=== PATIENT | male | born 1950 | race Caucasian/White ===

== ENCOUNTER 2024-02-01 13:59 | Outpatient (OUT) | payer MEDICARE, OTHER, SELFPAY ==
--- NOTE | 2024-02-01 14:12 | CT_ITS ---
[address] [address] Patient Name: JOSÉ ANTONIO FIELD MRN: [id number] date: 1950 Sex: M Assigned Patient Location: CT Current Patient Location: Accession/Order Number: [id number] Exam Date: 02/01/2024 14:31 Report Date: 02/02/2024 14:55 At the request of: SHILPA DANIELS Procedure: CT abdomen pelvis wo con EXAMINATION: CT abdomen pelvis wo con HISTORY: Kidney Stone, Microscopic Hematuria COMPARISON: No relevant comparison available. TECHNIQUE: Axial, Coronal, and Sagittal images were created without IV contrast. Dose reduction techniques were achieved by using automated exposure control and/or adjustment of mA and/or kV according to patient size and/or use of iterative reconstruction technique. FINDINGS: LUNG BASES: No visible pulmonary or pleural disease. LIVER: No enlargement, atrophy, abnormal density, or significant focal lesion. BILIARY: A lithiasis without CT evidence of acute cholecystitis PANCREAS: No lesion, fluid collection, ductal dilatation, or atrophy. SPLEEN: No enlargement or focal lesion. ADRENALS: No mass or enlargement. KIDNEYS: Normal right. Nonobstructing left nephrolithiasis BOWEL/MESENTERY: Moderate colonic diverticulosis without evidence of acute hepatitis. Nonobstructive bowel gas pattern. Moderate amount of stool. 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 Extensive calcific atherosclerosis RETROPERITONEUM: No mass or adenopathy. LYMPH NODES: No adenopathy. URINARY BLADDER: No visible focal wall thickening, lesion, or calculus. PELVIC ORGANS: Normal prostate size with central calcifications ABDOMINAL WALL: No mass or hernia. BONES: Chronic left L5 pars fracture with 2 mm anterolisthesis of L5 on S1. Moderate degenerative changes most significant at L3-4 OTHER: Negative. CT/CT abdomen pelvis wo con IMPRESSION: No obstructive uropathy Scattered prostate calcifications, nonspecific 3.5 cm aneurysm distal abdominal aorta Electronically authenticated by: CESAR BULL Date: 02/02/2024 14:55
== END 2024-02-01 14:00 | disposition home or self-care (01) ==
LOC: CT 14:04
PROVIDERS: PCP Family Medicine; Visit Provider Urology
DX: R31.21 Asymptomatic microscopic hematuria (principal); N20.0 Calculus of kidney; I71.40 Abdominal aortic aneurysm, without rupture, unspecified
CPT/HCPCS: 74176